=== PATIENT | male | born 1995 | race African-American/Black ===

== ENCOUNTER 2017-01-18 14:42 | Emergency (ER) | payer SELFPAY ==
[~2017-01-18 14:42] MED LIST: BACT2OIN TOP; NAPR-576 PO
[2017-01-18 15:32] VITALS: BP 135/81; PULSE 59; RESP 18; TEMP 96.5; O2SAT 99
--- NOTE | 2017-01-18 15:39 | PD ---
HPI Chief Complaint: ENT Complaint Time Seen by Provider: 15:39 Travel History International Travel<30 days: No Contact w/Intl Traveler<30days: No Traveled to known affect area: No History of Present Illness HPI 21-year-old male presents to emergency Department with complaint of sore throat , occasional cough, subjective fever 2 days. Denies lump throat, difficulty swallowing, unusual drooling. Reports painful swallowing. Denies nasal congestion, ear pain. Denies nausea, vomiting. Took 2-800 mg ibuprofens this morning for symptom management. I did discuss ibuprofen dosage with the patient. He verbalized understanding and agreement. Symptoms are mild in severity. No known allergies. Has no other medical complaints. No other modifying factors or associated signs and symptoms. PFSH Past Medical History Asthma: No Autoimmune Disease: No Blood Disorders: No Anxiety: No Depression: No Heart Rhythm Problems: No Cardiovascular Problems: No Chest Pain: No Cystic Fibrosis: No Developmental Delay: No Diminished Hearing: No Gastrointestinal Disorders: No Genitourinary: No Headaches: Yes Hypertension: No Musculoskeletal: No Neurologic: Yes Psychiatric: No Reproductive: No Respiratory: No Immunizations Current: Yes Sickle Cell Disease: No Sleep Apnea: No Past Surgical History Other Surgery: No Social History Alcohol Use: No Tobacco Use: No Substance Use: No Allergies-Medications (Allergen,Severity, Reaction): Coded Allergies: No Known Allergies (Verified , 01/18/17) Reported Meds & Prescriptions Reported Meds & Active Scripts Active Magic Mouthwash Pediatric/Adult Liq (Lidocaine/Diphenhydr/Alum/Mg/Simeth) 60 Ml Susp 5 Ml SWISH-SWAL Q3HR PRN Each 5mL contains: Diphenydramine 4.5mg, Viscous Lidocaine 2% 10mg, Maalox Advanced Regular Strength 2.7ml Naproxen 500 Mg Tab 500 Mg PO BID 5 Days Bactroban 2% Oint (22 gm) (Mupirocin) 22 Gm Oint 2 % TOP TID APPLY TO AFFECTED AREAS Review of Systems Except as stated in HPI: all other systems reviewed are Neg Physical Exam Narrative GENERAL: Well-nourished, well-developed black male patient, in no acute distress ; afebrile, nontoxic-appearing SKIN: Warm and dry. No rash. HEAD: Atraumatic. Normocephalic. EYES: Pupils equal and round. No scleral icterus. No injection or drainage. ENT: Mucosa pink and moist. Oropharynx with erythema; without edema or exudates. No uvular edema. No uvular, palatal, or tonsillar deviation. Airway patent. EARS: Bilateral pinnae and external canals appear within normal limits. Bilateral tympanic membranes without erythema, dullness or perforation. NECK: Trachea midline. No anterior cervical lymphadenopathy or tenderness on palpation. CARDIOVASCULAR: Regular rate and rhythm. No murmur appreciated. RESPIRATORY: No accessory muscle use. Clear to auscultation. Breath sounds equal bilaterally. No retractions or tachypnea. GASTROINTESTINAL: Abdomen soft, non-tender, nondistended. Hepatic and splenic margins not palpable. Bowel sounds are active 4 quadrants. MUSCULOSKELETAL: No obvious deformities. No clubbing. No cyanosis. No edema. NEUROLOGICAL: Awake and alert. Oriented 3. No obvious cranial nerve deficits. Motor grossly within normal limits. Normal speech. Moves all extremities. 5/5 strength to all extremities. PSYCHIATRIC: Appropriate mood and affect; insight and judgment normal. Data Data Last Documented VS Vital Signs Date Time Temp Pulse Resp B/P (MAP) Pulse Ox O2 Delivery O2 Flow Rate FiO2 01/18/17 15:32 96.5 59 18 135/81 (99) 99 Room Air Orders Orders Group A Rapid Strep Screen (01/18/17 15:39) Influenzae A/B Antigen (01/18/17 15:39) Strep Culture (Group A) (01/18/17 16:00) [facility] Medical Decision Making Medical Screen Exam Complete: Yes Emergency Medical Condition: Yes Medical Record Reviewed: Yes Differential Diagnosis Viral illness, viral pharyngitis, strep pharyngitis, influenza Narrative Course 21-year-old male with cold/flu symptoms. Reports sore throat. Denies lump in throat, difficulty swallowing, usual drooling. Patient is afebrile and nontoxic -appearing. Reports subjective fever at home. Influenza and rapid strep ordered. 1629: Rapid strep and influenza negative. Magic mouthwash prescribed for home. Discussed viral illness and symptomatic management. Instructed patient to follow up with primary care provider. Patient verbalizes understanding and agreement with treatment plan. Patient is medically cleared and stable for discharge. Discussed reasons to return to the emergency department. Patient agrees with treatment plan. The patients vital signs are stable and the patient is stable for outpatient follow-up and treatment. Patient discharged home, stable and in no acute distress. Diagnosis Primary Impression: Sore throat Referrals: [facility] Primary Care Physician Patient Instructions: General Instructions, Pharyngitis (ED) Departure Forms: Tests/Procedures, Work Release Enter return to work date: Jan 20, 2017 Additional Instructions: Ibuprofen or Tylenol as directed and as needed to reduce fever; may alternate ibuprofen and Tylenol as needed every 3 hours to minimize fever Ayiw-ayx-bezirxp cold/flu medications as directed and as needed for symptom management Get plenty of sleep/rest Drink plenty of fluids to prevent dehydration; such as Gatorade, Powerade, Pedialyte Bozman diet to encourage nutrition such as crackers, fruit, applesauce, toast, soup etc. Use an air humidifier/turn off ceiling fans Follow-up with your primary care provider within 1 day Return immediately to the emergency department with worsening of symptoms Med/Other Pt SpecificInfo: Prescription(s) given Scripts Tpacldqrdkynbeq-Wwjaiakvo-Ssv-Alum-Simeth Liq (Magic Mouthwash Pediatric/Adult Liq) 60 Ml Susp 5 ML SWISH-SWAL Q3HR Y for SORE THROAT, #60 ML 0 Refills Each 5mL contains: Diphenydramine 4.5mg, Viscous Lidocaine 2% 10mg, Maalox Advanced Regular Strength 2.7ml Prov: Marya Reyes 01/18/17 Disposition: 01 DISCHARGE HOME Condition: Stable Marya Reyes Jan 18, 2017 15:39
[2017-01-18] MEDS ORDERED: MAGICPED SWISH-SWAL (16:28)
== END 2017-01-18 16:44 | disposition home or self-care (01) ==
LOC: NEPK 14:42
DX: J02.9 Acute pharyngitis, unspecified (principal)
CPT/HCPCS: 87081; 87804; 87880; 99283